=== PATIENT | female | born 1965 | race Caucasian/White ===

== ENCOUNTER 2018-07-18 08:40 | Emergency (ER) | payer OTHER ==
[~2018-07-18] VITALS: Ht 190.5 cm; Wt 90.7 kg
[2018-07-18 08:45] VITALS: BP 125/87
--- NOTE | 2018-07-18 08:51 | NUR ---
PT AMBULATED TO ER BED 09
--- NOTE | 2018-07-18 09:00 | NUR ---
53 Y/O F BIB CAREGIVER WITH C/O OF HUMAN BITE LAUREN . PT'S CAREGIVER STATES " PT BIT HERSELF ON RIGHT LOWER ARM. + SWELLING, + REDNESS, - BLEEDING, + SCAB. PERRL, WITH EVEN AND STEADY GAIT; LUNGS CLEAR BL, BREATHING UNLABORED; HR EVEN AND REGULAR, BL PERIPHERAL PULSES PRESENT; PT DENIES ANY FEVER, CP, SOB, OR COUGH AT THIS TIME; PT STATES 6/10 PAIN AT THIS TIME; VSS; PATIENT POSITIONED FOR COMFORT; HOB ELEVATED; BEDRAILS UP X2; BED DOWN. PMH: NONE RX:?
[2018-07-18 09:19] VITALS: BP 122/85
== END 2018-07-18 09:20 | disposition home or self-care (01) ==
LOC: MED 08:40
DX: S41.151A Open bite of right upper arm, initial encounter (principal); Y33.XXXA Other specified events, undetermined intent, initial encounter; Y93.89 Activity, other specified; Y92.89 Other specified places as the place of occurrence of the external cause; Y99.8 Other external cause status
CPT/HCPCS: 99283

== ENCOUNTER 2018-09-11 14:35 | Emergency (ER) | payer OTHER ==
[~2018-09-11] VITALS: Ht 160 cm; Wt 101.6 kg
[2018-09-11 14:37] VITALS: BP 110/62
[2018-09-11 15:17] LABS: BASOPHILS % (AUTO) 0.4 % (0.0-2.0); EOSINOPHILS # (AUTO) 0.2 K/uL (0-0.4); EOSINOPHILS % (AUTO) 3.3 % (0.0-4.0); HEMOGLOBIN 13.6 g/dL (12.0-16.0); LYMPHOCYTES # (AUTO) 3.1 K/uL (2.5-16.5); LYMPHOCYTES % (AUTO) 47.3 % (20.5-51.1); MEAN CORPUSCULAR HEMOGLOBIN 32 pg (27-31); MEAN CORPUSCULAR HGB CONC 33 g/dL (33-37); MEAN CORPUSCULAR VOLUME 95.1 fL (80-94); MONOCYTES # (AUTO) 0.5 K/uL (0.8-1.0); MONOCYTES % (AUTO) 7.6 % (1.7-9.3); NEUTROPHILS # (AUTO) 2.7 K/uL (1.8-7.7); NEUTROPHILS % (AUTO) 41.4 % (42.2-75.2); PLATELET COUNT (AUTO) 120 K/uL (140-450); RED BLOOD CELL COUNT(AUTO) 4.31 MIL/uL (4.20-5.40); RED CELL DISTRIBUTION WIDTH 14.1 % (11.6-13.7); WHITE BLOOD COUNT (AUTO) 6.5 K/uL (4.8-10.8)
[2018-09-11 15:25] LABS: ANION GAP 10.6 (8-16); CREATININE 0.9 mg/dL (0.6-1.3); POTASSIUM 3.6 mmol/L (3.5-5.1)
--- NOTE | 2018-09-11 15:29 | NUR ---
ENCOURAGED PT TO ATTEMPT TO PROVIDE URINE SAMPLE
--- NOTE | 2018-09-11 15:29 | NUR ---
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 . DENIES N/V/D; SKIN IS PINK/WARM/DRY; AAOX4 WITH EVEN AND STEADY GAIT; LUNGS CLEAR BL; HR EVEN AND REGULAR; PT DENIES ANY FEVER, CP, SOB, OR COUGH AT THIS TIME; PATIENT STATES PAIN OF 0/10 AT THIS TIME; VSS; PATIENT POSITIONED FOR COMFORT; HOB ELEVATED; BEDRAILS UP X2; BED DOWN. ER MD MADE AWARE OF PT STATUS.
[2018-09-11 15:31] LABS: ALBUMIN 3.3 g/dL (3.4-5.0); TOTAL BILIRUBIN 0.2 mg/dL (0.0-1.0)
--- NOTE | 2018-09-11 15:33 | NUR ---
INFLUENZA SWAB COLLECTED AND LAB NOTIFIED
[2018-09-11] MEDS ORDERED: DIPH50CA69 PO (15:44)
[2018-09-11] MEDS ORDERED: ATOR10TA PO (15:44)
[2018-09-11] MEDS ORDERED: RISP0.5T3 PO (15:44)
[2018-09-11] MEDS ORDERED: TRAZ-343 PO (15:44)
[2018-09-11] MEDS ORDERED: DIT5 PO (15:44)
[2018-09-11] MEDS ORDERED: BUSP30TA PO (15:44)
--- NOTE | 2018-09-11 15:51 | NUR ---
PT MOVED TO BED 6
[2018-09-11 16:16] VITALS: BP 108/77
--- NOTE | 2018-09-11 16:16 | NUR ---
Patient discharged with v/s stable. Written and verbal after care instructions given and explained. Patient verbalized understanding. Ambulatory with by caregiver. All questions addressed prior to discharge. Advised to follow up with PMD.
== END 2018-09-11 16:16 | disposition home or self-care (01) ==
LOC: MED 14:35
DX: I95.9 Hypotension, unspecified (principal); R53.1 Weakness; F20.9 Schizophrenia, unspecified; E78.5 Hyperlipidemia, unspecified; Z79.899 Other long term (current) drug therapy
CPT/HCPCS: 36415; 80053; 85025; 87804; 99283

== ENCOUNTER 2019-04-11 17:51 | Emergency (ER) | payer OTHER ==
[~2019-04-11] VITALS: Ht 160 cm; Wt 117.9 kg
[~2019-04-11 17:51] MED LIST: ATOR10TA PO; BUSP30TA PO; DIPH50CA69 PO; DIT5 PO; RISP0.5T3 PO; TRAZ-343 PO
[2019-04-11 18:48] VITALS: BP 144/103
--- NOTE | 2019-04-11 20:26 | NUR ---
PT AMBULATED TO BED 11 WITH CAREGIVER
--- NOTE | 2019-04-11 21:08 | NUR ---
54 Y/O F BIB CAREGIVER FOR C/O COUGH AND RUNNY NOSE X1 WEEK. CAREGIVER REPORTS PT HAD A CHEST XRAY DONE TODAY THAT SHOWED PNEUMONIA. PT ALERT AND AWAKE, ANSWERS QUESTIONS APPROPIATELY. BILATERAL LUNGS CLEAR. +DRY COUGH. PT TOOK SUDAFED WITH NO RELIEF OF SYMPTOMS. CAREGIVER AT BEDSIDE. WILL CONTINUE TO MONITOR.
[2019-04-11] MEDS ORDERED: cefTRIAXone 2,000 MG in LIDOCAINE MPF 1% 2.1 ML IM ONE (21:10)
--- NOTE | 2019-04-11 21:15 | NUR ---
Patient discharged with v/s stable. Written and verbal after care instructions given and explained. Patient alert, oriented and verbalized understanding of instructions. Ambulatory with steady gait. All questions addressed prior to discharge. ID band removed. Patient advised to follow up with PMD. Rx of KARINA MANSFIELD given. Patient educated on indication of medication including possible reaction and side effects. Opportunity to ask questions provided and answered.
[2019-04-11 21:26] VITALS: BP 144/103
== END 2019-04-11 21:15 | disposition home or self-care (01) ==
LOC: MED 17:51
DX: J18.9 Pneumonia, unspecified organism (principal); E78.5 Hyperlipidemia, unspecified; F20.9 Schizophrenia, unspecified; Z79.899 Other long term (current) drug therapy
CPT/HCPCS: 96372; 99283; J0696; J2001

== ENCOUNTER 2019-06-27 17:59 | Inpatient (IN) | payer OTHER, MEDICAID ==
[~2019-06-27] VITALS: Ht 172.7 cm; Wt 117.9 kg
[2019-06-27 18:46] VITALS: BP 122/76
--- NOTE | 2019-06-27 19:25 | NUR ---
RAFAD NOTIFIED REGARDING RECTAL TEMP 89.9
--- NOTE | 2019-06-27 19:48 | NUR ---
BIB CAREGIVER C/O PROGRESSIVE WEAKNESS AND INCOHERENCY X 1 WEEK. PT LIVES IN LONG TERM AND NURSE RECOGNIZED PT BEGAN BECOMING MORE WEAK, UNABLE TO AMBULATE INDEPENDENTLY, SLURRED SENTENCES. GCS 13. BASELINE GCS 15 PER CAREGIVER. RESPIRATIONS EVEN AND UNLABORED. LUNG SOUNDS CLEAR BILAT. BOWEL SOUNDS NORMOACTIVE IN ALL QUADRANTS. ROM INTACT. SKIN INTACT, COOL, DRY. REWARMING MEASURES HAVE BEEN INITIATED. ALLERGIES: ATIVAN, SECLOBARBITAL
--- NOTE | 2019-06-27 19:58 | NUR ---
EKG PERFORMED AT BEDSIDE WITH CAREGIVER PRESENT
--- NOTE | 2019-06-27 20:13 | NUR ---
URINE REQUIRED, STRAIGHT CATHETER PERFORMED ON PATIENT WITH HELP WITH VANESSA CASTILLO. PT TOLERATED WELL.
--- NOTE | 2019-06-27 21:13 | NUR ---
PATIENT IS RESTING IN BED. BEAR HUGGER BLANKET ADJUSTED TO PATIENT. ALL NEEDS MET AT THIS TIME
[2019-06-27 21:16] LABS: APPEARANCE,URINE CLEAR (CLEAR); BILIRUBIN,URINE NEGATIVE (NEGATIVE); BLOOD, URINE NEGATIVE (NEGATIVE); COLOR,URINE YELLOW (YELLOW); LEUKOCYTE ESTERASE ,URINE NEGATIVE (NEGATIVE); NITRITE, URINE NEGATIVE (NEGATIVE); PH,URINE 6.5 (5.0-9.0); UGLUCOSE NEGATIVE (NEGATIVE)
[2019-06-27 21:22] LABS: HEMATOCRIT 36.6 % (36-48); HEMOGLOBIN 12.1 g/dL (12.0-16.0); MEAN CORPUSCULAR HEMOGLOBIN 33 pg (27-31); MEAN CORPUSCULAR HGB CONC 33 g/dL (33-37); MEAN CORPUSCULAR VOLUME 98.5 fL (80-94); PLATELET COUNT (AUTO) 48 K/uL (140-450); RED BLOOD CELL COUNT(AUTO) 3.71 MIL/uL (4.20-5.40); RED CELL DISTRIBUTION WIDTH 15.7 % (11.6-13.7); WHITE BLOOD COUNT (AUTO) 3.5 K/uL (4.8-10.8)
[2019-06-27 21:38] LABS: EOSINOPHILS % (MANUAL) 2 % (0-4); LYMPHOCYTES % (MANUAL) 53 % (20-46); MONOCYTES % (MANUAL) 10 % (5-12)
[2019-06-27 21:39] LABS: PROTHROMBIN TIME 10.4 secs (10.8-13.4)
[2019-06-27 21:40] LABS: ANION GAP 10.1 (8-16); CARBON DIOXIDE 29.7 mmol/L (21-32); CREATININE 0.7 mg/dL (0.6-1.3); POTASSIUM 4.8 mmol/L (3.5-5.1); TOTAL BILIRUBIN 0.1 mg/dL (0.0-1.0)
[2019-06-27 21:55] LABS: FREE T4 (FREE THYROXINE) 0.86 ng/dL (0.76-1.46); THYROID STIMULATING HORMONE 9.38 uIU/mL (0.34-3.74)
[2019-06-27] MEDS: NACL 0.9% 1,000 ML IV SCH (23:23)
[2019-06-27] MEDS ORDERED: ACETAMINOPHEN 325 MG TAB PO PRN (23:25)
[2019-06-27] MEDS ORDERED: DOCUSATE SODIUM 100 MG GELCAP PO PRN (23:25)
[2019-06-27] MEDS ORDERED: ONDANSETRON 4 MG/2 ML VIAL IM/IVP PRN (23:25)
[2019-06-27] MEDS ORDERED: DIPH50CA69 PO (23:37)
[2019-06-27] MEDS ORDERED: DIVA125E1 (23:37)
[2019-06-27] MEDS ORDERED: ROSU5TAB PO (23:41)
[2019-06-27] MEDS ORDERED: TRAZ-343 PO (23:41)
[2019-06-27] MEDS ORDERED: BENZ-196 PO (23:41)
[2019-06-27] MEDS ORDERED: LEVO0.3T5 PO (23:41)
[2019-06-27] MEDS ORDERED: DETLA4 PO (23:41)
[2019-06-27] MEDS ORDERED: RISP0.5T3 PO (23:41)
[2019-06-28] VITALS (9 sets, daily range): BP systolic 91–112; BP diastolic 37–74
[2019-06-28 00:04] LABS: AMYLASE 108 U/L (25-115); LACTATE DEHYDROGENASE 184 U/L (81-234); LIPASE 174 U/L (73-393); MAGNESIUM 1.7 mg/dL (1.8-2.4); PHOSPHORUS 2.8 mg/dL (2.5-4.9)
[2019-06-28] MEDS ORDERED: RISP4TAB17 PO (00:06)
[2019-06-28] MEDS ORDERED: DIPH50CA69 PO (00:06)
[2019-06-28] MEDS ORDERED: DIVA500E1 PO (00:06)
[2019-06-28] MEDS ORDERED: TRAZ-343 PO (00:06)
[2019-06-28] MEDS ORDERED: BENZ200C4 PO (00:06)
[2019-06-28] MEDS ORDERED: DIVA250E1 PO (00:06)
[2019-06-28] MEDS ORDERED: COMMUNICATION ORDER MC PRN (00:20)
[2019-06-28] MEDS ORDERED: DEXTROSE 50% 50 ML SYR IVP PRN (00:20)
--- NOTE | 2019-06-28 00:22 | NUR ---
Patient will be admitted to care of [facility]. Admited to ICU . Will go to room 7. Belongings list completed. Report to BOBBY CASTILLO.
--- NOTE | 2019-06-28 00:30 | NUR ---
PATIENT TRANSFERRED TO ICU BED 7 VIA GURNEY, TRANSFERRED TO ICU BED WITHOUT INCIDENT. PATIENT AWAKE AND ALERT AND ABLE TO FOLLOW SIMPLE COMMANDS. ANOx1. OPENS EYES SPONTANEOUSLY. ON ROOM AIR WITH SATURATIONS AT 97%. LUNG SOUNDS CLEAR, BREATHING IS UNLABORED. S1S2, SR ON MONITOR. PERIPHERAL IV 22G ON LEFT HAND, FLUSHED AND PATENT WITHOUT SYMPTOMS. ABDOMEN LARGE AND NONTENDER, ACTIVE BOWEL SOUNDS. PATIENT IS INCONTINENT, DIAPER IN PLACE. SKIN INTACT. BED IS LOCKED AND IN LOWEST POSITION, SIDERAILS UPx4, PATIENT ORIENTED TO CALL LIGHT, WITHIN REACH, AND UPDATED ON CARE PLAN. WILL CONTINUE TO MONITOR.
[2019-06-28 00:40] LABS: BARBITURATE, URINE NEG. ng/ml (NEG <=200); BENZODIAZEPINE, URINE NEG. ng/mL (NEG <=200); CANNABINOID, URINE NEG. ng/mL (NEG <=50); COCAINE, URINE NEG. ng/mL (NEG <=300); OPIATE, URINE NEG. ng/mL (NEG <=2000); PHENCYCLIDINE SCREEN,URINE NEG. ng/mL (NEG <=25)
--- NOTE | 2019-06-28 00:45 | NUR ---
PATIENT PLACED ON BEAR HUGGER, RECTAL TEMPERATURE 91.4. MD AWARE, NEW ORDERS TO START IV FLUIDS AND RECTAL TEMPERATURE Q2H. WILL CARRY OUT.
[2019-06-28] MEDS ORDERED: LACTULOSE 20 GM/30 ML UDC PO SCH (02:00)
[2019-06-28] MEDS ORDERED: LEVOTHYROXINE SODIUM 100 MCG VIAL IV SCH ×2 (02:00→09:00)
[2019-06-28] MEDS ORDERED: MAGNESIUM OXIDE 400 MG TAB PO SCH (02:00)
--- NOTE | 2019-06-28 02:15 | NUR ---
PATIENT IS MOVING ARMS AROUND AND CONSISTENTLY YELLING FOR NURSE AND FOR FOOD. IV DISPLACED BUT REINFORCED. ATTEMPTED TO START ANOTHER IV, TWICE, BUT PATIENT WILL IMMEDIATELY THRASH ARMS AROUND WHEN INSERTING IV. PERIPHERAL IV TO LEFT HAND STILL PATENT. IV FLUIDS CONTINUE TO INFUSE AT 100 ML. REORIENTED PATIENT TO IV LINES.
--- NOTE | 2019-06-28 03:00 | NUR ---
PATIENT ATE 80% OF SANDWICH AND ONE FULL PUDDING AND 2 ORANGE JUICES. 1:1 FEEDER WITH ASPIRATION PRECAUTIONS.
--- NOTE | 2019-06-28 04:15 | NUR ---
PROVIDED PATIENT WITH ORAL CARE AND SPONGE BATH. PATIENT TOLERATED FAIRLY, RECTAL TEMP 93.8. BEAR HUGGER STILL IN PLACE. IV FLUIDS INFUSING AT 100ML/HR. NO COMPLAINTS AT THIS TIME, NO PAIN.
[2019-06-28] MEDS: HYDROCORTISONE NA SUCC 100 MG/2 ML VIAL IV SCH ×3 (04:41→20:07)
[2019-06-28] MEDS: BLOOD GLUCOSE MONITORING 1 DEV DEV FS SCH ×6 (04:44→23:30)
--- NOTE | 2019-06-28 05:45 | NUR ---
SPOKE WITH REHABILITATION COORDINATOR FOR ORDERS FOR HEAD CT, PATIENT UNABLE TO TRANSPORT TO HEAD CT RIGHT NOW, PATIENT REFUSING AND UNCOOPERATIVE, ALSO NEED HELP WITH TRANSPORTING PATIENT [facility]O [facility]. AWARE, CONFIRMED OK TO COMPLETE HEAD CT IN A.M SHIFT. WILL ENDORSE TO A.M NURSE
[2019-06-28 05:57] LABS: BASOPHILS % (AUTO) 0.1 % (0.0-2.0); EOSINOPHILS # (AUTO) 0.2 K/uL (0-0.4); EOSINOPHILS % (AUTO) 3.4 % (0.0-4.0); HEMATOCRIT 35.9 % (36-48); HEMOGLOBIN 11.8 g/dL (12.0-16.0); LYMPHOCYTES % (AUTO) 41.8 % (20.5-51.1); MEAN CORPUSCULAR HEMOGLOBIN 33 pg (27-31); MEAN CORPUSCULAR HGB CONC 33 g/dL (33-37); MEAN CORPUSCULAR VOLUME 99.2 fL (80-94); MONOCYTES # (AUTO) 0.4 K/uL (0.8-1.0); MONOCYTES % (AUTO) 8.9 % (1.7-9.3); NEUTROPHILS # (AUTO) 2.2 K/uL (1.8-7.7); NEUTROPHILS % (AUTO) 45.8 % (42.2-75.2); PLATELET COUNT (AUTO) 51 K/uL (140-450); RED BLOOD CELL COUNT(AUTO) 3.62 MIL/uL (4.20-5.40); RED CELL DISTRIBUTION WIDTH 15.8 % (11.6-13.7); WHITE BLOOD COUNT (AUTO) 4.9 K/uL (4.8-10.8)
--- NOTE | 2019-06-28 06:52 | NUR ---
AT [address] PATIENT ON BIPAP AND SHE REFUSED TO WEAR THE BIPAP. PATIENT TOOK IT OFF AND WOULD NOT ALLOW RT TO PLACE IT OVER HER FACE. WAS NOTIFIED AND RN WAS AWARE. RT WAS ALSO UNABLE TO OBTAIN 6AM ABG BECAUSE PATIENT REFUSED AND WAS YELLING AND PULLING HER ARM AWAY. PATIENT IS STABLE AND ALERT AT THIS TIME NO RESP DISTRESS NOTICED. WAS AWARE AND WE WILL MONITOR PATIENT CLOSELY.
--- NOTE | 2019-06-28 07:05 | NUR ---
recived pt bedside bipap machine bedside pt on room air 0 resp distress breath sounds present bilat diminished will continue to monitor pt
[2019-06-28 07:08] LABS: ANION GAP 9.9 (8-16); CARBON DIOXIDE 29.7 mmol/L (21-32); CREATININE 0.7 mg/dL (0.6-1.3); POTASSIUM 4.6 mmol/L (3.5-5.1)
[2019-06-28 07:16] LABS: MAGNESIUM 1.6 mg/dL (1.8-2.4); PHOSPHORUS 2.5 mg/dL (2.5-4.9)
[2019-06-28 07:20] LABS: CHOL/HDL RATIO 2.3 (1-4.5)
--- NOTE | 2019-06-28 07:30 | NUR ---
RECEIVED BEDSIDE REPORT FROM WALLET ASSEMBLER, PT IS AAOX1, ABLE TO FOLLOW SIMPLE COMMANDS, VSS, TEMP 97.8F, DENIES PAIN, NO S/S OF DISTRESS, CLEAR LUNG SOUNDS YEN. ON RA. O2 SAT 100%, DENIES CHEST PAIN, SR ON MOTOR SCOOTER MECHANIC, CAP REFILL <2 SEC. LARGE ROUND ABDOMEN WITH ACTIVE BOWEL SOUNDS, INCONTINENT WITH B&B'S, ABLE TO MOVE ALL EXTREMITIES, SKIN IS WARM AND DRY TO TOUCH, NO OPEN WOUNDS, IV SITE TO LEFT HAND 22GA, PATENT AND RUNNING NS AT 100 ML/HR, HOB ELEVATED 30 DEGREES, CALL LIGHT WITHIN REACH, SAFETY MEASURES IN PLACE, WILL CONTINUE TO MONITOR.
--- NOTE | 2019-06-28 08:00 | NUR ---
PATIENT IS SLIDING DOWN TO THE BED, PULLED PATIENT UP AND CLEANED PATIENT, CHANGED BED LINING, VSS, DENIES PAIN, OFFERED TV TO WATCH, POSITION CHANGED FOR OFF LOAD PRESSURE.
--- NOTE | 2019-06-28 08:30 | NUR ---
PATIENT HAS BEEN SCREENED AND CATEGORIZED MODERATE NUTRITION RISK. PATIENT WILL BE SEEN WITHIN 3-5 DAYS OF ADMISSION. 06/30/19 07/02/[address]
[2019-06-28] MEDS ORDERED: DIVALPROEX 250 MG TABEC PO SCH (09:00)
[2019-06-28] MEDS: diphenhydrAMINE 50 MG CAP PO SCH ×3 (09:00→20:07)
[2019-06-28] MEDS ORDERED: DIVALPROEX 500 MG TABEC PO SCH (09:00)
[2019-06-28] MEDS ORDERED: BENZONATATE 100 MG CAPLF PO PRN (09:00)
[2019-06-28] MEDS ORDERED: risperiDONE 1 MG TAB PO SCH (09:00)
[2019-06-28] MEDS ORDERED: NON-FORMULARY ITEM (Rosuvastatin Calcium* (Crestor*) 1 TAB) PO SCH (09:00)
--- NOTE | 2019-06-28 09:00 | NUR ---
PT AT BEDSIDE, TRYING TO GET PATIENT OUT OF BED AND START WALKING WITH WALKER, AND TRYING TO PUT PATIENT TO WHEELCHAIR, PATIENT REFUSED, RISK AND BENEFIT EXPLAINED, PATIENT STILL REFUSED, BUT ABLE TO SIT UP AT EDGE OF THE BED HAVING BREAKFAST AT THIS TIME, ATE 10% OF BREAKFAST, AND LYING BACK TO BED AGAIN.
--- NOTE | 2019-06-28 09:15 | NUR ---
DR. HIGH CAME IN TO SEE PATIENT AT BEDSIDE, UPDATED PATIENT'S CONDITION, NO NEW ORDER AT THIS TIME.
--- NOTE | 2019-06-28 09:55 | NUR ---
SCHEDULED MEDICATION GIVEN, PT IS ABLE TO SWALLOW PILLS WHOLE WITH PUDDING AT THIS TIME.
--- NOTE | 2019-06-28 10:00 | NUR ---
PATIENT IS RESTING IN BED, NO S/S OF DISTRESS, VSS, DENIES PAIN, POSITION CHANGED FOR OFF LOAD PRESSURE.
[2019-06-28] MEDS: risperiDONE 1 MG TAB PO SCH ×2 (10:11→20:08)
[2019-06-28] MEDS: DIVALPROEX 500 MG TABEC PO SCH ×2 (10:11→20:08)
[2019-06-28] MEDS: NACL 0.9% 1,000 ML IV SCH ×2 (10:12→21:44)
[2019-06-28] MEDS: SIMVASTATIN 20 MG TAB PO SCH (10:12)
[2019-06-28] MEDS: TOLTERODINE LA 4 MG CAPER PO SCH (10:13)
--- NOTE | 2019-06-28 10:14 | NUR ---
SCREEN FOR LOW BEN SCALE AT RISK, CONTINUE TO FOLLOW PRESSURE ULCER PREVENTION INTERVENTIONS. -TURN AND REPOSITION PATIENT Q2H, ASSIST IF NEEDED -ASSESS AND MONITOR SKIN CONDITION DURING POSITION CHANGES -OFFLOAD BILATERAL HEELS BY PLACING PILLOWS UNDER CALVES AT ALL TIMES, UNLESS OTHERWISE CONTRAINDICATED -PRESSURE REDISTRIBUTION BY PLACING PILLOWS AND OFFLOADING SACRALCOCCYX -KEEP SKIN CLEAN AND DRY AT ALL TIMES.
--- NOTE | 2019-06-28 10:15 | NUR ---
PATIENT'S IV LINE OUT DUE TO PATIENT MOVES A LOT, SMALL AMOUNT OF BLEEDING NOTED, COVERED WITH DRESSING, RESTARTED A NEW IV LINE TO LEFT HAND 22GA, PATIENT TOLERATED WELL.
[2019-06-28] MEDS ORDERED: MAG SULF 2000 MG/WATER PREMIX 50 ML IV SCH (11:00)
--- NOTE | 2019-06-28 11:10 | NUR ---
Police Clerk Note: Patient is a 54-year-old female admitted for hypothermia and hyperthyroidism. Patient has PMHX of schizoaffective disorder, moderate intellectual disability, overactive bladder, and hx of hypertension. Patient was admitted from [facility]. SW contacted [facility] [phone] and was unable to leave a voicemail. SW left voicemail with emergency contact Won Devine [phone] and Tammy Kothari [phone]. SW will follow up as needed. Addendum: 06/28/19 at 1439 by Jan Connelly Basic Screen: Yes High Risk DC Screen [place]: WON DEVINE [place] Relationship: FATHER/CONSERVATOR Prior ADL Needs Assistance Current Home Health Name/Tel: N/A Current DME/02 Name/Tel: N/A Current Hospice Name/Tel: N/A Current Dialysis Name/Tel: N/A Healthcare Decision Maker: Conservator/Public Guardi Other: FATHER - WON DEVINE Advance Directive No Physician Orders for Life Sustaining Treatment Form No Discipline: Case Mgt/Social Svcs Tentative Discharge Plan/Destination: No Needs Identified Will require assistance post discharge: No Referred to House Calls Nurse: No Tentative Discharge Plan Summary: Patient is a 54-year-old admitted for hypothermia and hypothyroidism. Patient has PMHX of schizoaffective disorder, moderate intellectual disability, overactive bladder, and history of hypertension. Patient was admitted from [facility]. VIKRAM contacted Juana from [facility]. Per Juana, patient is able to ambulate independently, but facility assists patient with dispensing medication, bathing and preparing meals. Juana stated that patient's father Won Devine [phone] is patient's conservator. Tentative discharge plan for patient is to return to [facility]. No further needs identified. Signature: DELMER Brandt Date: Jun 28, 2019 Time: 14:37
--- NOTE | 2019-06-28 11:50 | NUR ---
OFFERED LUNCH, PATIENT ONLY ATE 10%OF THE MEAL AT THIS TIME.
--- NOTE | 2019-06-28 12:00 | NUR ---
PATIENT IS WATCHING TV, NO S/S OF DISTRESS, VSS, DENIES PAIN, POSITION CHANGED FOR OFF LOAD PRESSURE.
[2019-06-28] MEDS ORDERED: PROBIOTIC SCREEN 1 EA MISC MC PRN (13:30)
--- NOTE | 2019-06-28 14:00 | NUR ---
NO CHANGE OF CONDITION, VSS, DENIES PAIN, POSITION CHANGED FOR OFF LOAD PRESSURE.
--- NOTE | 2019-06-28 14:50 | NUR ---
PATIENT IS TAKEN TO CT SCAN VIA BED, ACCOMPANIED WITH JUNIOR PARALEGAL AND RN.
--- NOTE | 2019-06-28 15:00 | NUR ---
PT NON COMPLIANT RN AWARE
--- NOTE | 2019-06-28 15:05 | NUR ---
PATIENT IS BACK TO UNITS, REPOSITION FOR COMFORT, NO INCIDENT OCCUR AT THIS TIME.
--- NOTE | 2019-06-28 16:00 | NUR ---
PM CARE AND ORAL CARE PROVIDED, PATIENT TOLERATED WELL, POSITION CHANGED FOR COMFORT.
--- NOTE | 2019-06-28 19:13 | NUR ---
REPORT GIVEN TO SOCIAL MEDIA EXECUTIVE NURSE FOR CONTINUE OF CARE, PATIENT IS IN STABLE CONDITION, RESTING IN BED.
--- NOTE | 2019-06-28 19:13 | NUR ---
RECEIVED REPORT FROM CHERISE CASTILLO. PT AWAKE, A&O X1. RESPONDS TO NAME. FOLLOWS SIMPLE COMMANDS. R/L PUPPILS 3MM, PERRL. PT ON ROOM AIR. RESPIRATIONS EVEN AND UNLABORED. CHEST RISE IS SYMMETRICAL. HEART SOUNDS HEARD S1 & S2. SKIN INTACT, WARM AND DRY. CAP REFILL LESS THAN SECONDS. ABDOMEN SOFT AND ROUND. BOWEL SOUNDS ACTIVE. PT ON BEAR HUGGER. TEMPERATURE 98.7. IV SITE L HAND 22 GAUGE, INFUSING NS AT 100ML/HR. DENIES PAIN. BED LOCKED IN LOWEST POSITION. HOB 30 DEGREES. WILL CONTINUE TO MONITOR.
--- NOTE | 2019-06-28 20:00 | NUR ---
BLOOD SUGAR 94. WITHIN NORMAL LIMITS.
[2019-06-28] MEDS: traZODone 50 MG TAB PO SCH (20:08)
--- NOTE | 2019-06-28 20:10 | NUR ---
PO ORDERED MEDICATIONS GIVEN WITH VANILLA PUDDING. PT TOLERATED WELL.
[2019-06-28] MEDS ORDERED: diphenhydrAMINE 50 MG CAP PO SCH (21:00)
--- NOTE | 2019-06-28 22:26 | NUR ---
PT TRANSFERRED VIA GURNEY TO RM 107 B. PT PLACED ON TELE BOX MONITOR. LAST VITALS WHEN TRANSFERRING WERE FOLLOWS: BP 102/56 O2 SAT 92% RESPIRATORY RATE 12, HEART RATE 91. PT IN STABLE CONDITION. REPORT GIVEN TO MACEY CASTILLO.
--- NOTE | 2019-06-28 22:35 | NUR ---
RECEIVED PATIENT IN STABLE CONDITION FROM ICU VIA GURNEY. TELE PATIENT; ABLE TO MAKE SIMPLE NEEDS KNOWN. RESPIRATIONS EVEN, UNLABORED. NO C/O PAIN. NO S/SX ACUTE DISTRESS. IV SITE TO LEFT HAND 22G INTACT, INFUSING FLUIDS WELL. ORIENTED PATIENT TO ROOM AND STAFF. SAFETY PRECAUTIONS IN PLACE. CALL LIGHT WITHIN REACH. WILL CONTINUE TO MONITOR.
--- NOTE | 2019-06-28 22:40 | NUR ---
SKIN IS INTACT BUT SMALL BRUISE IS NOTED TO INNER RIGHT THIGH. PATIENT VERBALIZES NO PAIN/TENDERNESS TO SITE. ALL OTHER NEEDS MET. CALL LIGHT WITHIN REACH. WILL CONTINUE TO MONITOR.
--- NOTE | 2019-06-28 23:51 | NUR ---
CHECKED BLOOD GLUCOSE AT 200 MG/DL. DR BRYANT NOTIFIED WITH ORDER TO GIVE 2 UNITS OF HUMALOG. PATIENT IS IN STABLE CONDITION. NO S/SX ACUTE DISTRESS. NO C/O PAIN. CALL LIGHT WITHIN REACH. WILL CONTINUE TO MONITOR. Addendum: 06/29/19 at 0111 by Michelle Wolf RN 06/28/[address] BRYANT WENT TO SEE PATIENT AND CHANGED ORDER TO JUST MONITOR PATIENT AND NO NEED FOR INSULIN COVERAGE. NO COVERAGE GIVEN FOR PATIENT. PATIENT IN STABLE CONDITION. WILL CONTINUE TO MONITOR.
--- NOTE | 2019-06-29 01:11 | NUR ---
MADE ROUNDS. PATIENT IS ASLEEP. NO C/O PAIN. NO S/SX ACUTE DISTRESS. CALL LIGHT WITHIN REACH. WILL CONTINUE TO MONITOR.
--- NOTE | 2019-06-29 02:21 | NUR ---
AWAKE AND IN STABLE CONDITION. NO C/O PAIN. NO S/SX ACUTE DISTRESS. CALL LIGHT WITHIN REACH. WILL CONTINUE TO MONITOR.
[2019-06-29] MEDS: NACL 0.9% 1,000 ML IV SCH ×2 (02:34→16:58)
[2019-06-29 04:00] VITALS: BP 110/58
[2019-06-29] MEDS: BLOOD GLUCOSE MONITORING 1 DEV DEV FS SCH ×5 (04:00→20:00)
--- NOTE | 2019-06-29 04:30 | NUR ---
PATIENT IN STABLE CONDITION. RESTING COMFORTABLY IN BED AND ASKING FOR JELLO. ASSISTED PATIENT WITH EATING JELLO. NO C/O PAIN. NO S/SX ACUTE DISTRESS. CALL LIGHT WITHIN REACH. WILL CONTINUE TO MONITOR.
[2019-06-29] MEDS: HYDROCORTISONE NA SUCC 100 MG/2 ML VIAL IV SCH ×3 (05:07→20:55)
[2019-06-29] MEDS: LEVOTHYROXINE 0.1 MG TAB PO SCH (05:35)
--- NOTE | 2019-06-29 06:15 | NUR ---
PATIENT AWAKE AND IN STABLE CONDITION. NO C/O PAIN. NO S/SX ACUTE DISTRESS. DUE MEDS GIVEN. CALL LIGHT WITHIN REACH. WILL CONTINUE TO MONITOR.
--- NOTE | 2019-06-29 07:15 | NUR ---
RECEIVED REPORT FROM JEWELRY SORTER NURSE FOR CONTINUITY OF CARE. PT IN STABLE CONDITION. RESPIRATIONS EVEN AND UNLABORED. IV INTACT AND PATENT. SAFETY MEASURES IN PLACE. BED IN LOW POSITION. BED ALARM ON. CALL LIGHT AT BEDSIDE. WILL CONTINUE TO MONITOR.
[2019-06-29 08:00] VITALS: BP 120/62
[2019-06-29 08:12] LABS: BASOPHILS % (AUTO) 0.1 % (0.0-2.0); EOSINOPHILS % (AUTO) 0.2 % (0.0-4.0); HEMATOCRIT 34.7 % (36-48); HEMOGLOBIN 11.5 g/dL (12.0-16.0); LYMPHOCYTES # (AUTO) 1.8 K/uL (2.5-16.5); LYMPHOCYTES % (AUTO) 21.5 % (20.5-51.1); MEAN CORPUSCULAR HEMOGLOBIN 33 pg (27-31); MEAN CORPUSCULAR HGB CONC 33 g/dL (33-37); MEAN CORPUSCULAR VOLUME 99.4 fL (80-94); MONOCYTES # (AUTO) 0.7 K/uL (0.8-1.0); MONOCYTES % (AUTO) 8.7 % (1.7-9.3); NEUTROPHILS # (AUTO) 5.7 K/uL (1.8-7.7); NEUTROPHILS % (AUTO) 69.5 % (42.2-75.2); PLATELET COUNT (AUTO) 46 K/uL (140-450); RED BLOOD CELL COUNT(AUTO) 3.49 MIL/uL (4.20-5.40); RED CELL DISTRIBUTION WIDTH 16.3 % (11.6-13.7); WHITE BLOOD COUNT (AUTO) 8.1 K/uL (4.8-10.8)
[2019-06-29 08:19] LABS: ANION GAP 10.9 (8-16); CARBON DIOXIDE 27.2 mmol/L (21-32); CREATININE 0.8 mg/dL (0.6-1.3); POTASSIUM 4.1 mmol/L (3.5-5.1)
[2019-06-29] MEDS ORDERED: LEVOTHYROXINE SODIUM 100 MCG VIAL IV SCH (09:00)
[2019-06-29] MEDS: DIVALPROEX 500 MG TABEC PO SCH ×2 (09:12→20:56)
[2019-06-29] MEDS: TOLTERODINE LA 4 MG CAPER PO SCH (09:12)
[2019-06-29] MEDS: risperiDONE 1 MG TAB PO SCH ×2 (09:13→20:55)
[2019-06-29] MEDS: SIMVASTATIN 20 MG TAB PO SCH (09:13)
[2019-06-29] MEDS: diphenhydrAMINE 50 MG CAP PO SCH ×2 (09:13→20:55)
--- NOTE | 2019-06-29 09:30 | NUR ---
GAVE ORDERED DUE MEDICATIONS AT THIS TIME. PT TOLERATED WELL. PT IN STABLE CONDITION. BED IN LOW POSITION. CALL LIGHT AT BEDSIDE. BED ALARM ON. WILL CONTINUE TO MONITOR.
[2019-06-29] MEDS ORDERED: KCL 20 MEQ/WATER INJ PREMIX 200 ML IV PRN (09:35)
--- NOTE | 2019-06-29 10:48 | NUR ---
CHANGED LINEN AND CLOTHING AFTER URINATION. PT TOLERATED WELL. PT IN STABLE CONDITION. BED IN LOW POSITION. CALL LIGHT AT BEDSIDE. BED ALARM ON. WILL CONTINUE TO MONITOR.
[2019-06-29 11:02] LABS: MAGNESIUM 2.2 mg/dL (1.8-2.4); PHOSPHORUS 2.3 mg/dL (2.5-4.9)
--- NOTE | 2019-06-29 11:30 | NUR ---
PT REFUSED BLOOD SUGAR TESTING AT THIS TIME.
[2019-06-29 12:00] VITALS: BP 114/79
--- NOTE | 2019-06-29 12:08 | NUR ---
MOVED PT TO ROOM 110B FOR CONTINUITY OF CARE. PT IN STABLE CONDITION.
--- NOTE | 2019-06-29 14:52 | NUR ---
PT SLEEPING AT THIS TIME. RESPIRATIONS EVEN AND UNLABORED. BED IN LOW POSITION. CALL LIGHT AT BEDSIDE. WILL CONTINUE TO MONITOR.
--- NOTE | 2019-06-29 16:55 | NUR ---
PT EATING DINNER AT THIS TIME.
--- NOTE | 2019-06-29 19:15 | NUR ---
GAVE REPORT TO DIRECTOR PACKAGING NURSE FOR CONTINUITY OF CARE. PT IN STABLE CONDITION.
--- NOTE | 2019-06-29 19:16 | NUR ---
RECEIVED PATIENT FROM AM SHIFT NURSE IN STABLE CONDITION FOR CONTINUITY OF CARE. PATIENT IS AWAKE AND YELLING BAD WORDS. NO S/SX ACUTE DISTRESS. NO C/O PAIN. IV SITE TO LEFT HAND 22G INFUSING FLUIDS WELL. REORIENTED PATIENT ABOUT NOT YELLING AND USING CALL LIGHT BUT PATIENT NEEDS REINFORCEMENT. CALL LIGHT WITHIN REACH. WILL CONTINUE TO MONITOR.
[2019-06-29 20:00] VITALS: BP 110/47
[2019-06-29] MEDS: traZODone 50 MG TAB PO SCH (20:56)
--- NOTE | 2019-06-29 21:10 | NUR ---
PATIENT CONTINUES TO SCREAM IN ROOM FOR NURSE. ATTEMPTED TO ORIENT PATIENT WITH LITTLE SUCCESS; PATIENT CONTINUES TO USE BAD LANGUAGE AND IS REFUSING CARE. PATIENT IS CLEAN/DRY. NO C/O PAIN. CALL LIGHT WITHIN REACH. WILL CONTINUE TO MONITOR.
[2019-06-29] MEDS ORDERED: MUPIROCIN CA NASAL 2% 1GM TUBE NS SCH (21:15)
[2019-06-29] MEDS: CHLORHEXADINE GLUC 2% CLOTH TP SCH (21:42)
--- NOTE | 2019-06-29 22:00 | NUR ---
PATIENT ALLOWED STAFF TO PROVIDE CARE BUT STILL SCREAMING FOUL LANGUAGE. ALL NEEDS MET. NO S/SX ACUTE DISTRESS. CALL LIGHT WITHIN REACH. WILL CONTINUE TO MONITOR.
[2019-06-29] MEDS ORDERED: HALOPERIDOL 5 MG TAB PO ONE (22:10)
[2019-06-29] MEDS ORDERED: HALOPERIDOL IM 5 MG/ML VIAL IM SCH (23:00)
--- NOTE | 2019-06-29 23:08 | NUR ---
PATIENT CONTINUES TO YELL EXPLETIVES AND IS VERY AGITATED. ADMINISTERED HALDOL IM WITH 2 NURSES AT BEDSIDE. WILL CONTINUE TO MONITOR.
[2019-06-30] VITALS: BP 115/45
--- NOTE | 2019-06-30 01:00 | NUR ---
PATIENT IS LESS AGITATED BUT STILL SCREAMING FOR NURSE. ANSWERED PROMPTLY AND PATIENT WAS SATISFIED AT THIS TIME. ABLE TO PROVIDE INCONTINENT CARE WITH ELECTRIC SWITCH REPAIRER AT BEDSIDE. NO S/SX DISTRESS. CALL LIGHT WITHIN REACH. WILL CONTINUE TO MONITOR.
[2019-06-30] MEDS: NACL 0.9% 1,000 ML IV SCH ×3 (02:08→22:08)
--- NOTE | 2019-06-30 03:00 | NUR ---
PATIENT PULLED OUT IV. CATHETER INTACT. MINIMAL BLEEDING. CHANGED IV SITE TO RIGHT FOREARM 22G. GOOD BLOOD RETURN. PROVIDED EDUCATION TO PATIENT ABOUT KEEPING IV SITE INTACT. PATIENT VERBALIZED UNDERSTANDING BUT NEEDS REINFORCEMENT. GAVE PUDDING, PATIENT VERY HAPPY AND MORE COMPLIANT WITH CARE. PERICARE PROVIDED. NO C/O PAIN. NO S/SX ACUTE DISTRESS. CALL LIGHT WITHIN REACH. WILL CONTINUE TO MONITOR.
[2019-06-30 04:00] VITALS: BP 130/83
[2019-06-30] MEDS: BLOOD GLUCOSE MONITORING 1 DEV DEV FS SCH ×6 (04:00→20:00)
--- NOTE | 2019-06-30 04:37 | NUR ---
PATIENT IN STABLE CONDITION. BLOOD GLUCOSE 142 MG/DL. NO COVERAGE NEEDED. PATIENT MORE COMPLIANT WITH CARE. NO C/O PAIN. NO S/SX ACUTE DISTRESS. CALL LIGHT WITHIN REACH. WILL CONTINUE TO MONITOR.
[2019-06-30] MEDS: HYDROCORTISONE NA SUCC 100 MG/2 ML VIAL IV SCH ×3 (05:13→21:00)
[2019-06-30] MEDS: LEVOTHYROXINE 0.1 MG TAB PO SCH (06:14)
--- NOTE | 2019-06-30 06:42 | NUR ---
PATIENT IS STABLE IN BED. VERY COMPLIANT WITH CARE AT THIS TIME. NO C/O PAIN. NO S/SX ACUTE DISTRESS. CALL LIGHT WITHIN REACH. WILL CONTINUE TO MONITOR.
--- NOTE | 2019-06-30 07:38 | NUR ---
ENDORSED PATIENT IN STABLE CONDITION TO AM SHIFT NURSE FOR CONTINUITY OF CARE.
--- NOTE | 2019-06-30 07:39 | NUR ---
RECEIVED REPORT FROM MUMPS DEVELOPER NURSE. PATIENT LYING DOWN IN BED SLEEPING, AROUSABLE BY VOICE. NO DISTRESS NOTED. DENIES ANY PAIN. AAOX1, MENTAL DISABILITY HX. SKIN COLOR APPROPRIATE TO ETHNICITY, WARM TO TOUCH. SKIN INTACT. IV SITE INTACT, PATENT, AND INFUSING IVF PER MD ORDERS. ABDOMEN SOFT, NON-DISTENDED. REVIEWED PLAN OF CARE WITH PATIENT. REINFORCEMENT NEEDED. SAFETY MEASURES IN PLACE, CALL LIGHT WITHIN REACH. WILL CONTINUE TO MONITOR.
[2019-06-30 08:00] VITALS: BP 114/75
[2019-06-30] MEDS: diphenhydrAMINE 50 MG CAP PO SCH ×2 (09:08→21:00)
[2019-06-30] MEDS: TOLTERODINE LA 4 MG CAPER PO SCH (09:08)
[2019-06-30] MEDS: risperiDONE 1 MG TAB PO SCH ×2 (09:08→21:00)
[2019-06-30] MEDS: SIMVASTATIN 20 MG TAB PO SCH (09:08)
[2019-06-30] MEDS: DIVALPROEX 500 MG TABEC PO SCH ×2 (09:08→21:00)
--- NOTE | 2019-06-30 09:13 | NUR ---
PATIENT LYING DOWN IN BED. NO DISTRESS NOTED. SCHEDULED MEDICATIONS DUE GIVEN. WILL CONTINUE TO MONITOR.
[2019-06-30 09:59] LABS: BASOPHILS % (AUTO) 0.1 % (0.0-2.0); EOSINOPHILS % (AUTO) 0.2 % (0.0-4.0); HEMATOCRIT 35.9 % (36-48); HEMOGLOBIN 11.8 g/dL (12.0-16.0); LYMPHOCYTES # (AUTO) 1.7 K/uL (2.5-16.5); LYMPHOCYTES % (AUTO) 23.4 % (20.5-51.1); MEAN CORPUSCULAR HEMOGLOBIN 32 pg (27-31); MEAN CORPUSCULAR HGB CONC 33 g/dL (33-37); MEAN CORPUSCULAR VOLUME 98.8 fL (80-94); MONOCYTES # (AUTO) 0.2 K/uL (0.8-1.0); MONOCYTES % (AUTO) 2.9 % (1.7-9.3); NEUTROPHILS # (AUTO) 5.3 K/uL (1.8-7.7); NEUTROPHILS % (AUTO) 73.4 % (42.2-75.2); PLATELET COUNT (AUTO) 45 K/uL (140-450); RED BLOOD CELL COUNT(AUTO) 3.64 MIL/uL (4.20-5.40); RED CELL DISTRIBUTION WIDTH 15.9 % (11.6-13.7); WHITE BLOOD COUNT (AUTO) 7.3 K/uL (4.8-10.8)
--- NOTE | 2019-06-30 11:04 | NUR ---
TRIED TO CHANGE PATIENT WITH MASTER CONTROL SUPERVISOR BECAUSE SHE IS WET. PATIENT SCREAMING "NO, I DON'T CARE" AND TRYING TO KICK STAFF. WILL RETRY AGAIN LATER.
[2019-06-30 11:08] LABS: ANION GAP 12.4 (8-16); CARBON DIOXIDE 25.7 mmol/L (21-32); CREATININE 0.8 mg/dL (0.6-1.3); POTASSIUM 4.1 mmol/L (3.5-5.1)
--- NOTE | 2019-06-30 13:00 | NUR ---
PATIENT LYING DOWN IN BED SLEEPING, AROUSABLE BY VOICE. NO DISTRESS NOTED. DENIES ANY PAIN. SCHEDULED MEDICATIONS DUE GIVEN. WILL CONTINUE TO MONITOR.
--- NOTE | 2019-06-30 16:00 | NUR ---
PATIENT LYING DOWN IN BED WITH INTERMITTENT YELLING, CUSSING. CONDITION UNCHANGED. WILL CONTINUE TO MONITOR.
--- NOTE | 2019-06-30 18:47 | NUR ---
PATIENT LYING DOWN IN BED, YELLING BAD WORDS. CALMED PATIENT DOWN. WILL CONTINUE MONITOR.
--- NOTE | 2019-06-30 19:17 | NUR ---
GAVE REPORT TO CAMP BOSS NURSE FOR CONTINUITY OF CARE. PATIENT IN STABLE CONDITION.
--- NOTE | 2019-06-30 19:20 | NUR ---
RECEIVED REPORT FROM AM SHIFT RN. PT CONTINUES TO SCREAM. HX OF SCHIZO AFFECTIVE DISORDER + MENTAL INSTABILITY. UNABLE TO COMPLETE ASSESSMENT. PT KICKING AND SPITTING ON STAFF.
--- NOTE | 2019-06-30 19:40 | NUR ---
PT PULLED OUT IV AND LEADS. PT REFUSES TO BE CLEANED. WITH CNAS AT BEDSIDE. MADE AWARE
--- NOTE | 2019-06-30 20:15 | NUR ---
ATTEMPTED TO REINSERT IV. UNSUCCESSFUL. PT NONCOMPLAINT. CONTINUES TO KICK AND BE VERBALLY ABUSE TOWARDS STAFF.
[2019-06-30] MEDS: traZODone 50 MG TAB PO SCH (21:00)
--- NOTE | 2019-06-30 21:00 | NUR ---
PT REFUSED MEDICATIONS. KNOCKED DOWN EVERYTHING TO FLOOR. REORIENTATION UNSUCCESSFUL. PT CONTINUES TO BE COMBATIVE AND VERBALLY ABUSIVE
[2019-06-30] MEDS ORDERED: MUPIROCIN CA NASAL 2% 1GM TUBE NS SCH (21:15)
[2019-06-30] MEDS: CHLORHEXADINE GLUC 2% CLOTH TP SCH (21:15)
[2019-06-30] MEDS ORDERED: HALOPERIDOL IM 5 MG/ML VIAL IM SCH (21:30)
--- NOTE | 2019-06-30 21:30 | NUR ---
PT GIVEN HALDOL IM AT THIS TIME. HALDOL INEFFECTIVE CONTINUES TO SCREAM AND BE COMBATIVE TOWARDS STAFF.
--- NOTE | 2019-07-01 00:05 | NUR ---
PT REFUSED VITAL SIGNS AND ACCUCHECK AT THIS TIME. EXPLAINED RISK VS. BENEFITS. PT STILL AGGRESSIVE AND REFUSES.
[2019-07-01] MEDS ORDERED: diphenhydrAMINE 50 MG/ML VIAL IVP SCH (01:00)
--- NOTE | 2019-07-01 01:00 | NUR ---
ADMINISTERED BENADRYL IM AT THIS TIME FOR INCREASING AGITATION. WILL CONTINUE TO MONITOR.
--- NOTE | 2019-07-01 01:20 | NUR ---
PT CONTINUES TO BE SCREAMING EXPLOITATIVE LANGUAGE AND RACIAL SLURS. ANGELITA UNSUCCESSFUL. MADE AWARE.
[2019-07-01] MEDS: BLOOD GLUCOSE MONITORING 1 DEV DEV FS SCH ×4 (03:39→12:00)
--- NOTE | 2019-07-01 04:45 | NUR ---
PT ABLE TO BE CLEANED AT THIS TIME. ATTEMPTED TO INSERT NEW IV. PT BEGAN BECOMING MORE COMBATIVE. NO SIGNS OF ACUTE DISTRESS AT THIS TIME. BED IN LOWEST POSITION. CALL LIGHT WITHIN REACH.
[2019-07-01] MEDS: HYDROCORTISONE NA SUCC 100 MG/2 ML VIAL IV SCH (05:00)
--- NOTE | 2019-07-01 05:31 | NUR ---
PT AGITATED AT THIS TIME. COMBATIVE. REFUSES AM MEDICATION. UNABLE TO GIVE IV MEDS D/T NO IV ACCESS.
[2019-07-01] MEDS: LEVOTHYROXINE 0.1 MG TAB PO SCH (05:33)
--- NOTE | 2019-07-01 07:12 | NUR ---
ENDORSED CARE TO INCOMING SHIFT RN FOR CONTINUITY OF CARE,
--- NOTE | 2019-07-01 07:13 | NUR ---
RECEIVED REPORT FROM DEPOSITION REPORTER NURSE. PATIENT LYING DOWN IN YELLING, CURSING INTERMITTENTLY. NO DISTRESS NOTED. DENIES ANY PAIN. AAOX1, MENTAL DISABILITY AND SCHIZOAFFECTIVE HX. SKIN COLOR APPROPRIATE TO ETHNICITY, WARM TO TOUCH. SKIN INTACT. NO IV SITE PATIENT PULLED OUT LAST NIGHT AND TOO COMBATIVE TO INSERT A NEW ONE PER NIGHT RN REPORTS, MD AWARE. ABDOMEN SOFT, NON-DISTENDED. REVIEWED PLAN OF CARE WITH PATIENT. REINFORCEMENT NEEDED. SAFETY MEASURES IN PLACE, CALL LIGHT WITHIN REACH. WILL CONTINUE TO MONITOR.
[2019-07-01] MEDS: NACL 0.9% 1,000 ML IV SCH (08:08)
[2019-07-01] MEDS: risperiDONE 1 MG TAB PO SCH (09:00)
[2019-07-01] MEDS: diphenhydrAMINE 50 MG CAP PO SCH (09:00)
[2019-07-01] MEDS: TOLTERODINE LA 4 MG CAPER PO SCH (09:00)
[2019-07-01] MEDS: DIVALPROEX 500 MG TABEC PO SCH (09:00)
[2019-07-01] MEDS: SIMVASTATIN 20 MG TAB PO SCH (09:00)
--- NOTE | 2019-07-01 09:15 | NUR ---
PATIENT REFUSES AM MEDICATIONS, CONTINUES TO YELL, CURSE, AND IS COMBATIVE WHEN TRY TO TOUCH HER. MD AWARE. WILL CONTINUE TO MONITOR.
--- NOTE | 2019-07-01 11:13 | NUR ---
PATIENT CONTINUES TO REFUSE EVERYTHING, YELLING, CURSING, COMBATIVE. MD AWARE. WILL CONTINUE TO MONITOR.
[2019-07-01] MEDS ORDERED: RIS1 PO (11:49)
[2019-07-01] MEDS ORDERED: BEN50 PO (11:49)
[2019-07-01] MEDS ORDERED: SYN.1 PO (11:49)
--- NOTE | 2019-07-01 12:55 | NUR ---
[facility] [place] [facility] ALEXEY AT BEDSIDE. DISCHARGE INSTRUCTIONS PROVIDED TO PATIENT/ALEXEY. INSTRUCTIONS ON FOLLOW-UP VISIT WITH PCP, NEW/CHANGED MEDICATION REGIMEN AND SIDE EFFECTS, DISEASE PROCESS/MANAGEMENT OF HYPOTHYROIDISM. ANSWERED ALL OF PATIENT/ALEXEY'S QUESTIONS REGARDING DISCHARGE. PATIENT/ALEXEY VERBALIZED COMPLETE UNDERSTANDING. PATIENT GOT DRESSED IN HER OWN CLOTHES. ESCORTED PATIENT DOWN TO LOBBY VIA WHEELCHAIR. PATIENT DISCHARGED BACK TO BOARD AND SHELTER AT THIS TIME IN STABLE CONDITION.
== END 2019-07-01 12:45 | DRG 80 ==
LOC: MED 17:59 → MIC 23:27 → MTU 06-28 22:30
PROVIDERS: ADMIT General Practice; ATTEND General Practice
DX: E03.5 Myxedema coma (principal); G93.41 Metabolic encephalopathy; J96.22 Acute and chronic respiratory failure with hypercapnia; R65.10 Systemic inflammatory response syndrome (SIRS) of non-infectious origin without acute organ dysfunction; E87.0 Hyperosmolality and hypernatremia; E44.0 Moderate protein-calorie malnutrition; E72.20 Disorder of urea cycle metabolism, unspecified; E78.5 Hyperlipidemia, unspecified; E66.9 Obesity, unspecified; F25.9 Schizoaffective disorder, unspecified; E87.5 Hyperkalemia; F39 Unspecified mood [affective] disorder; E87.8 Other disorders of electrolyte and fluid balance, not elsewhere classified; E83.42 Hypomagnesemia; N32.81 Overactive bladder; R68.0 Hypothermia, not associated with low environmental temperature; R74.0 Nonspecific elevation of levels of transaminase and lactic acid dehydrogenase [LDH]; Z68.38 Body mass index [BMI] 38.0-38.9, adult; Z88.8 Allergy status to other drugs, medicaments and biological substances; Z68.39 Body mass index [BMI] 39.0-39.9, adult
CPT/HCPCS: 36415; 36600; 70450; 71045; 76536; 76705; 80048; 80053; 80305; 81003; 82140; 82150; 82533; 82550; 82803; 82948; 83036; 83605; 83615; 83690; 83735; 83880; 84100; 84134; 84439; 84443; 84479; 84484; 84703; 85025; 85610; 85730; 87040; 87081; 87086; 87804; 93005; 93880; 97112; 97161-GP; 99285; G0482; J1200; J1630; J1720; J3475; J7030; J7060; Q0092; Q0163